=== PATIENT | male | born 1975 | race Caucasian/White ===

== ENCOUNTER 2023-02-24 04:48 | Emergency (ER) | payer OTHER ==
[~2023-02-24] VITALS: Ht 182.9 cm; Wt 115.0 kg
[2023-02-24 04:58] VITALS: BP 138/94; PULSE 69; RESP 17; TEMP 98; O2SAT 97
[2023-02-24] MEDS ORDERED: LIDOCAINE 1% HCL (LOCAL ANESTH.) INJ 20ML MDV IJ ONE (06:45)
[2023-02-24] MEDS ORDERED: cefTRIAXone SOD 1,000 MG VL IM ONE (06:45)
[2023-02-24] MEDS ORDERED: TETANUS-DIPTH-ACEL PERTUSSIS 0.5ML SYR Tdap IM ONE (06:45)
[2023-02-24] MEDS ORDERED: CEPH500C PO (07:10)
[2023-02-24] MEDS ORDERED: IBUP-1456 PO (07:10)
== END 2023-02-24 07:29 | disposition home or self-care (01) ==
LOC: ER 04:48
DX: S62.654A Nondisplaced fracture of middle phalanx of right ring finger, initial encounter for closed fracture (principal); S61.214A Laceration without foreign body of right ring finger without damage to nail, initial encounter; W22.8XXA Striking against or struck by other objects, initial encounter; Y93.89 Activity, other specified; Y92.69 Other specified industrial and construction area as the place of occurrence of the external cause; Y99.8 Other external cause status
CPT/HCPCS: 12002; 29130; 73140; 90471; 90715; 96372; 99284; J0696; J2001